=== PATIENT | female | born 1940 | race Hispanic/Latino ===

== ENCOUNTER 2017-12-15 10:51 | Emergency (ER) | payer MEDICARE, BC ==
[2017-12-15 10:59] VITALS: RESP 18; O2SAT 97
[2017-12-15] MEDS ORDERED: Piperacillin/Tazobact 3.375 gm 100 ML IV STA (11:41)
--- NOTE | 2017-12-15 11:46 | C.PDOC ---
History Of Present Illness 77 y/o female presents to the ER for evaluation of a leg wound which has been present since 11/08/17 s/p fall. She was evaluated in [facility] and she was diagnosed with a hematoma. Patient reports that she does not like the wound is improving so she went to see her PMD, Dr. Cardenas in his office today and he advised her to come to the ER. No new trauma. No fever. Notes she was on antibiotics previously though finished the coarse. DEnies change in sensation or weakness. Time Seen by Provider: 12/15/17 11:02 Chief Complaint (Nursing): Abnormal Skin Integrity History Per: Patient History/Exam Limitations: no limitations Onset/Duration Of Symptoms: Days Current Symptoms Are (Timing): Still Present Past Medical History Reviewed: Historical Data, Nursing Documentation, Vital Signs Vital Signs: Last Vital Signs Temp 97.9 F 12/15/17 13:01 Pulse 76 12/15/17 13:01 Resp 18 12/15/17 13:01 BP 115/75 12/15/17 13:01 Pulse Ox 97 12/15/17 13:22 - Medical History PMH: COPD Surgical History: Appendectomy Family History: States: No Known Family Hx - Social History Hx Tobacco Use: No Hx Alcohol Use: No Hx Substance Use: No - Immunization History Hx Influenza Vaccination: Yes Review Of Systems Except As Marked, All Systems Reviewed And Found Negative. Constitutional: Negative for: Fever, Chills Skin: Positive for: Other (right leg wound) Physical Exam - Physical Exam Appears: Non-toxic, No Acute Distress Skin: Warm, Dry Head: Atraumatic, Normacephalic Eye(s): bilateral: Normal Inspection, EOMI Nose: Normal Oral Mucosa: Moist Neck: Normal ROM, Supple Chest: Symmetrical Respiratory: No Accessory Muscle Use Extremity: Normal ROM, Tenderness (tenderness to right anterior russell), No Calf Tenderness, Swelling (6 cm x 4 cm area of swelling to right anterior russell with erythema, no active draining) Pulses: Left Dorsalis Pedis: Normal, Right Dorsalis Pedis: Normal Neurological/Psych: Oriented x3, Normal Speech, Normal Sensation Gait: Steady ED Course And Treatment - Laboratory Results Result Diagrams: 12/15/17 11:57 12/15/17 11:57 O2 Sat by Pulse Oximetry: 97 (RA) Pulse Ox Interpretation: Normal Progress Note: Case discussed and pt evaluated by in the ER. He applied compression dressing to the area and he instructed for patient to follow up in his office. Case was also discussed with Dr. Cardneas. As per 's request, labs were ordered and patient was treated with Zosyn. Patient has been discharged with prescription for Augmentin and instructed to follow up with and next week. Disposition - Disposition Referrals: Annabel Cardenas MD [Staff Provider] - Cricket Ruiz Jr., MD [Staff Provider] - Disposition: HOME/ ROUTINE Disposition Time: 11:43 Condition: STABLE Additional Instructions: Follow up with Dr Cardenas and Dr Ruiz next week. Return to the ER if symptoms persist or worsen. Prescriptions: Amoxicillin/Clavulanate [Augmentin 875 MG-125 MG] 1 tab PO BID #14 tab Instructions: Contusion (DC) Forms: [employer] (Indonesian) - Clinical Impression Clinical Impression: Hematoma, Wound of right leg - PA / BOS[employer]ESSER / Resident Statement MD/DO has reviewed & agrees with the documentation as recorded. - Scribe Statement The provider has reviewed the documentation as recorded by the Donny Ortiz Provider Attestation All medical record entries made by the Donny were at my direction and personally dictated by me. I have reviewed the chart and agree that the record accurately reflects my personal performance of the history, physical exam, medical decision making, and the department course for this patient. I have also personally directed, reviewed, and agree with the discharge instructions and disposition.
[2017-12-15] MEDS ORDERED: Piperacillin/Tazobact 3.375 gm 100 ML IVPB ONE (11:57)
[2017-12-15 12:05] LABS: BASO % 0.7 % (0.0-2.0); EOS # 0.1 K/uL (0.0-0.7); EOS % 2.3 % (0.0-4.0); HEMOGLOBIN 12.6 g/dL (11.0-16.0); LYMPH # 0.8 K/uL (1.0-4.3); LYMPH % 13.4 % (20.0-40.0); MEAN CELL VOLUME 96.3 fL (81.0-99.0); MEAN CORPUSCULAR HEMOGLOBIN 31.7 pg (27.0-31.0); MEAN CORPUSCULAR HGB CONC 32.9 g/dL (33.0-37.0); MEAN PLATELET VOLUME 9.4 fL (7.2-11.7); MONO # 0.5 K/uL (0.0-0.8); MONO % 8.5 % (0.0-10.0); NEUT # 4.3 K/uL (1.8-7.0); NEUT % 75.1 % (50.0-75.0); RBC 3.99 Mil/uL (3.80-5.20); RED CELL DISTRIBUTION WIDTH 15.3 % (11.5-14.5); WHITE BLOOD COUNT 5.8 K/uL (4.8-10.8)
[2017-12-15 12:15] LABS: ALB/GLOB RATIO 1.4 (1.0-2.1); ALBUMIN 4.6 g/dL (3.5-5.0); ALT/SGPT 25 U/L (9-52); AST/SGOT 30 U/L (14-36); BLOOD UREA NITROGEN 17 mg/dL (7-17); CALCIUM 9.9 mg/dl (8.6-10.4); GFR AFRICAN-AMERICAN > 60; GFR NON-AFRICAN AMERICAN > 60
[2017-12-15 13:01] VITALS: BP 115/75; PULSE 76; TEMP 97.9
== END 2017-12-15 13:14 | disposition home or self-care (01) ==
LOC: C.ER 10:51
DX: S80.11XD Contusion of right lower leg, subsequent encounter (principal); X58.XXXD Exposure to other specified factors, subsequent encounter
CPT/HCPCS: 80053; 85025; 96374; 99284; J2543